=== PATIENT | male | born 1955 | race Caucasian/White ===

== ENCOUNTER → 2018-05-21 | Outpatient (CLI) | payer OTHER ==
--- NOTE | ~2018-05-21 | ONC ---
[place] [address] RADIATION ONCOLOGY NOTE Name: SHAAN COTA Room: [facility]#: [id number] Admission: 05/21/18 Attend Phys: Brad Perales MD Discharge: Date of : 59 Report #: [id number] THIS REPORT FOR: //name// CC: Brad Miranda DATE OF SERVICE: 05/21/2018 REFERRING PHYSICIANS: Serjio Miranda MD; Saroj Gama MD; Sandeep Maier MD; Brielle Goff MD; Tee Connolly M.D. [facility] phone is [phone]. 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 The patient's radiation treatments were completed on 05/03/2015. INTERVAL NOTE: The patient tends to eat moist foods. He stopped eating dry foods like dry breads because of his xerostomia. The option of pilocarpine was discussed with the patient, but he was not interested in starting pilocarpine at this time. Instead, he likes to take Mentos that helped some. He also uses 1.1% fluoride gel that his dentist prescribes for him. He uses that regularly and sees his dentist regularly. MEDICATIONS: Hyzaar and 50 mcg of levothyroxine. 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 He is . Cigarettes, he does not smoke. REVIEW OF SYSTEMS: RESPIRATORY: The patient's breathing was baseline. He was not short of breath. EXTREMITIES: He has good range of motion of his extremities. PHYSICAL EXAMINATION: VITAL SIGNS: The patient weighed 194.8 pounds on 05/21/2018, 189.4 pounds 05/20/2017. On 05/21/2018, blood pressure is 134/76, pulse 64, respirations 20, oxygen saturation 96%. LYMPH NODES: He had no palpable cervical or supraclavicular lymphadenopathy. HEAD, EYES, EARS, NOSE AND THROAT: Mouth had no suspicious visible lesions or suspicious palpable lesions. On nasopharyngolaryngoscopy, after application of a small amount of 2% viscous lidocaine orally and 2% viscous lidocaine via left nostril, using a cotton swab, there were no visible lesions in the nasopharynx. There were no visible lesions in the posterior oropharynx. Base of tongue had no visible lesions. The true vocal cords were normally mobile bilaterally. HEART: Had a regular rate and rhythm without murmur. LUNGS: [place] [address] RADIATION ONCOLOGY NOTE Name: SHAAN COTA Room: [facility]#: [id number] Admission: 05/21/18 Attend Phys: Brad Perales MD Discharge: Date of : 59 Report #: [id number] LABORATORY DATA: From 05/19/2018, BUN was 33, creatinine was 1.93. His creatinine was 1.87 on 04/01/2018 and it was 2.25 on 10/28/2017. TSH was elevated at 6.12 with him taking 50 mcg of levothyroxine per day. RADIOLOGIC DATA: He had a neck and chest CT on 10/28/2017, which showed post-therapeutic changes in the head and neck area and no thoracic lymphadenopathy or pulmonary metastatic disease. ASSESSMENT AND PLAN: 1. History of base of tongue cancer. There is no evidence of head and neck cancer at this time. The patient is scheduled for lab work and a neck and chest CT with his medical oncologist, Dr. Goff on 10/28/2018. He is scheduled to follow up with Dr. Goff on 10/29/2018. I gave the patient a requisition for basic metabolic panel 04/2019 and I asked the patient to follow up with me afterwards. 2. Hypothyroidism. The patient's TSH was elevated with him taking 50 mcg of levothyroxine per day. So he was given a new prescription to 4 75 mcg of levothyroxine per day. A TSH was ordered in 04/2019 and he was asked to schedule a followup appointment to see me afterwards. 3. Renal insufficiency. The patient follows up with his glass fitter, Dr. Gama on a regular basis to manage this issue. 4. Elevated prostate specific antigen, appears to be due to benign prostatic hypertrophy. It is indicated, he had a biopsy earlier in 2016, which was benign. He continues to follow up with his urologist, Dr. Connolly with regards to this issue. 5. Hypertension. The patient takes Hyzaar and that is managed by his referring physicians. 6. Dental care. The patient sees his dentist regularly and uses what appears to be a high fluoride toothpaste for dental care. Thank you for allowing me to participate in the care of this patient. By: 1149 [id number] Perales MD /radha
--- NOTE | ~2018-05-21 | ONC ---
[place] [address] RADIATION ONCOLOGY NOTE Name: SHAAN COTA Room: [facility]#: [id number] Admission: 05/21/18 Attend Phys: Brad Perales MD Discharge: Date of : 59 Report #: [id number] THIS REPORT FOR: //name// CC: Brad Miranda DATE OF SERVICE: 05/21/2018 REFERRING PHYSICIANS: Include Serjio Miranda MD; Saroj Gama MD; Sandeep Maier MD; Brielle Goff MD; Tee Connolly MD. [facility] phone is [phone]. 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 The patient received chemoradiotherapy. The radiation treatments were completed on 05/03/2015. PROCEDURE: Nasopharyngolaryngoscopy. FINDINGS: On nasopharyngolaryngoscopy after administration of a small amount of 2% viscous lidocaine orally and 2% viscous lidocaine to left nostril with a cotton swab, there were no visible lesions in the nasopharynx. There were no visible lesions in the oropharynx. There were no visible lesions involving the base of tongue. The true vocal cords are normally mobile bilaterally without any visible lesions. There was no evidence of head and neck cancer. Thank you for allowing me to participate in the care of this patient. By: 1143 [id number] Perales MD /radha
== END ==
LOC: M.RTH 02:22
DX: Z08 Encounter for follow-up examination after completed treatment for malignant neoplasm (principal); E03.9 Hypothyroidism, unspecified; I10 Essential (primary) hypertension; R97.20 Elevated prostate specific antigen [PSA]; Z85.810 Personal history of malignant neoplasm of tongue; Z79.899 Other long term (current) drug therapy

== ENCOUNTER → 2018-08-04 | Outpatient (CLI) | payer OTHER ==
--- NOTE | 2018-08-04 14:28 | 2DMMODE ---
[place] [address] 2 D/M-MODE ECHOCARDIOGRAM Name: SHAAN COTA Room: [facility]#: [id number] Admission: 08/04/18 Attend Phys: Serjio Sifuentes, Discharge: Date of : 59 Date of Service: 08/04/18 1428 Report #: [id number] THIS REPORT FOR: //name// APPROVED REPORT Study performed: 08/04/2018 10:54:43 EXAM: Comprehensive 2D, Doppler, and color-flow Echocardiogram Patient Location: Out-Patient BSA: 1.98 HR: 62 bpm BP: 142/80 mmHg Other Information Study Quality: Good Indications Mitral Valve Prolapse 2D Dimensions IVSd: 11.76 (7-11mm) LVOT Diam: 20.78 (18-24mm) LVDd: 50.43 mm PWd: 11.90 (7-11mm) Ascending Ao: 30.40 (22-36mm) LVDs: 28.24 (25-40mm) Aortic Root: 30.20 mm Volumes Left Atrial Volume (Systole) LA ESV Index: 37.20 mL/m2 Aortic Valve AoV Peak Emory.: 1.25 m/s AO Peak Gr.: 6.22 mmHg LVOT Max P.38 mmHg AO Mean Gr.: 3.43 mmHg LVOT Mean P.31 mmHg LVOT Max V: 1.26 m/s AO V2 VTI: 18.49 cm LVOT Mean V: 0.85 m/s CHIDI (VTI): 3.30 cm2 LVOT V1 VTI: 18.00 cm Mitral Valve MV Peak Gr.: 3.36 mmHg MV Mean Gr.: 1.43 mmHg E/A Ratio: 1.11 MV Decel. Time: 319.08 ms MV E Max Emory.: 0.76 m/s MV PHT: 92.53 [place] [address] 2 D/M-MODE ECHOCARDIOGRAM Name: SHAAN COTA Room: [facility]#: [id number] Admission: 08/04/18 Attend Phys: Serjio Sifuentes, Discharge: Date of : 59 Date of Service: 08/04/18 1428 Report #: [id number] MVA (PHT): 2.38 cm2 TDI E/Lateral E': 8.44 E/Medial E': 8.44 Medial E' Emory.: 0.09 m/s Lateral E' Emory.: 0.09 m/s Pulmonary Valve PV Peak Emory.: 0.97 m/s PV Peak Gr.: 3.73 mmHg Tricuspid Valve RAP Estimate: 5.00 mmHg TR Peak Gr.: 16.86 mmHg RVSP: 21.86 mmHg PA Pressure: 21.86 mmHg Left Ventricle The left ventricle is normal size. There is normal LV segmental wall motion. There is normal left ventricular wall thickness. Left ventricular systolic function is normal. The left ventricular ejection fraction is within the normal range. LVEF is 60-65%. The left ventricular diastolic function is normal. Right Ventricle The right ventricle is normal size. The right ventricular systolic function is normal. Atria Left atrium is moderately dilated. The right atrium size is normal. Aortic Valve The aortic valve is normal in structure. Mild aortic regurgitation. There is no aortic valvular stenosis. Mitral Valve Moderate mitral regurgitation. No evidence of mitral valve stenosis. There is moderate mitral valve prolapse. Tricuspid Valve The tricuspid valve is normal in structure. Mild tricuspid regurgitation. Pulmonic Valve The pulmonary valve is normal in structure. [place] [address] 2 D/M-MODE ECHOCARDIOGRAM Name: SHAAN COTA Room: [facility]#: [id number] Admission: 08/04/18 Attend Phys: Serjio Sifuentes, Discharge: Date of : 59 Date of Service: 08/04/18 1428 Report #: [id number] Great Vessels The aortic root is normal in size. IVC is normal in size and collapses >50% with inspiration. Pericardium There is no pericardial effusion. <Conclusion> LVEF is 60-65%. Mild aortic regurgitation. Moderate mitral regurgitation. There is moderate mitral valve prolapse. Left atrium is moderately dilated. <ELECTRONICALLY SIGNED> By: Jeff Rivera MD, [facility] 08/04/18 1428 1428 1428 Jeff Rivera MD, FAC /INF
--- NOTE | 2018-08-04 14:47 | EXE ---
[place] [address] STRESS ECHOCARDIOGRAM Name: SHAAN COTA Room: [facility]#: [id number] Admission: 08/04/18 Attend Phys: Serjio Sifuentes, Discharge: Date of : 59 Date of Service: 08/04/18 1447 Report #: [id number] THIS REPORT FOR: //name// APPROVED REPORT Study performed: 08/04/2018 11:36:42 Exam: Stress Echocardiogram Indication: Dyspnea Patient Location: Out-Patient Stress Nurse: Debbie Garcia RN Supervising Physician: Jeff Rivera MD Ht: 5 ft 8 in HR: 57 bpm BP: 150/79 mmHg Medical History Cardiac Risk Factors: HTN, FHX of CAD Procedure The patient underwent an Exercise Stress Test using the Abdifatah Protocol. Blood pressure, heart rate, and EKG were monitored. An Echocardiogram was performed by fiber optics technician in four stages in quad fashion. At peak stress, four selected images were obtained and placed side by side with resting images for comparison. Stress Test Details Stress Test: Exercise stress testing was performed using a Abdifatah protocol. HR Resting HR: 57 bpm Max Heart Rate (APMHR): 160 bpm Max HR Achieved: 158 bpm Target HR (85% APMHR): 136 bpm % of APMHR: 98 Recovery HR: 88 bpm HR response to stress: Normal HR response to stress BP Resting BP: 150/79 mmHg Max BP: 232/64 mmHg Recovery BP: 143/79 mmHg BP response to stress: Normal blood pressure response to stress. ECG Resting ECG: Sinus Rhythm Stress ECG: [place] [address] STRESS ECHOCARDIOGRAM Name: SHAAN COTA Room: [facility]#: [id number] Admission: 08/04/18 Attend Phys: Serjio Sifuentes, Discharge: Date of : 59 Date of Service: 08/04/18 1447 Report #: [id number] ST Change: Normal Maximum ST Deviation: 0 mm Arrhythmia: None Recovery ECG: Sinus Rhythm Recovery ST Change: Normal Recovery ST Deviation: 0 mm Recovery Arrhythmia: None Clinical Reason for Termination: Completed protocol Exercise duration: 10 min sec Highest Stage Achieved: Stage 4: 4.2 mph at 16% grade. Exercise capacity: 11.80 METs Pre-Stress Echo The resting Echocardiogram showed normal left ventricular contractility with an estimated Ejection Fraction of about 55-60%. Post-Stress Echo The stress Echocardiogram showed normal left ventricular contractility with an estimated Ejection Fraction of about 65-70%. Conclusion Clinical Response: Non-ischemic Exercise Capacity: Average Stress ECG Response: Non-ischemic Stress Echo Images: Non-ischemic low risk stress echo for future cardiac events Other Information Study Quality: Good <Conclusion> low risk stress echo for future cardiac events <ELECTRONICALLY SIGNED> By: Jeff Rivera MD, FACC 08/04/18 1447 1447 144 Jeff Rivera MD, FAC /INF
== END ==
LOC: M.CRD 07-21 16:26
DX: I08.3 Combined rheumatic disorders of mitral, aortic and tricuspid valves (principal)

== ENCOUNTER → 2018-08-04 | Outpatient (CLI) | payer OTHER | LOC: M.CT 09:30 | DX: Z13.6 Encounter for screening for cardiovascular disorders (principal) ==

== ENCOUNTER → 2019-06-05 | Outpatient (CLI) | payer OTHER ==
--- NOTE | ~2019-06-05 | ONC ---
[address] [address] RADIATION ONCOLOGY NOTE Name: SHAAN COTA Room: [facility]#: [id number] Admission: 06/05/19 Attend Phys: Brad Perales MD Discharge: Date of : 59 Report #: [id number] THIS REPORT FOR: //name// CC: Brad Arambula DATE OF SERVICE: 06/05/2019 REFERRING PHYSICIANS: Include Dr. Serjio Miranda; Dr. Saroj Gama; Dr. Sandeep Maier; Dr. Brielle Goff; Dr. Arambula. [facility] phone number is [phone]. PRIMARY SITE AND HISTOPATHOLOGY: The patient was treated for stage 4A T2 N2 M0 squamous cell cancer of the base of tongue with chemoradiotherapy. The patient's radiation treatments were completed on 05/03/2015. He was also recently diagnosed with prostate cancer on 05/14/2019 with a Shenandoah score of 3 + 4 equals 7 and PSA was 6.0 in 01/2017. The patient is scheduled for prostatectomy in 07/2019. INTERVAL NOTE: As noted, the patient had a prostate biopsy on 05/14/2019 and Shenandoah score was 3 + 4 equals 7 on two of the cores that were biopsied. Again, he is scheduled for prostatectomy in 07/2019. Dr. Muñoz performed the biopsy. Otherwise, with regards to his history of head and neck cancer, the patient is eating well. He was eating moist foods. In terms of the xerostomia, he likes to take mentos mints, which helps relieve some of his xerostomia symptoms and he also uses 1.1% fluoride gel that his dentist prescribes for him. MEDICATIONS: Include Hyzaar and 75 mcg of levothyroxine per day. 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 He is . Cigarettes, he does not smoke cigarettes. REVIEW OF SYSTEMS: RESPIRATORY: The patient's breathing was baseline. He was not short of breath. EXTREMITIES: He has good range of motion of his extremities. PHYSICAL EXAMINATION: VITAL SIGNS: The patient weighed 189 pounds on 06/05/2019, 194.8 pounds on 05/21/2018. On 06/05/2019, blood pressure is 125/71, pulse 60, respirations 18, oxygen saturation 97%. LYMPH NODES: He had no palpable cervical or supraclavicular lymphadenopathy. HEAD, EYES, EARS, NOSE, AND THROAT: Mouth had no suspicious visible lesions or suspicious palpable lesions. On nasopharyngolaryngoscopy, after application of a small amount of 2% viscous lidocaine orally and 2% viscous lidocaine via left nostril using cotton swab, there were no visible lesions in the nasopharynx and no visible lesions in the posterior oropharynx. The [place] [address] RADIATION ONCOLOGY NOTE Name: SHAAN COTA [place] [id number] Admission: 06/05/19 Attend Phys: Brad Perales MD Discharge: Date of : 59 Report #: [id number] visible lesions. True vocal cords are normally mobile bilaterally. HEART: Had a regular rate and rhythm without murmur. LUNGS: Clear to auscultation. LABORATORY DATA: PSA on 03/04/2019 was 6.6. On 03/20/2019, his white blood count was 7.7; hemoglobin 14.1; platelets 197,000. BUN 31, creatinine 1.82. TSH was 3.42, which was within normal limits on his present dose of 75 mcg of levothyroxine per day. The patient also had a neck and chest CT on 10/28/2018, which showed no evidence of recurrent disease in the neck or chest. ASSESSMENT AND PLAN: 1. History of base of tongue cancer. There is no evidence of base of tongue cancer at this time. The patient's medical oncologist, Dr. Goff, has ordered a neck and chest CT on 10/27/2019 and she will follow up with the patient on 10/29/2019. I ordered a basic metabolic panel in about 1 year and asked the patient to follow up with me afterwards. 2. Hypothyroidism. The patient's TSH was within normal limits with him taking 75 mcg of levothyroxine per day, so he was given a refill for 75 mcg of levothyroxine. TSH was ordered in about 1 year and the patient was asked to schedule a followup appointment to see me afterwards. 3. Renal insufficiency. The patient follows up with his it support analyst, Dr. Gama, on a regular basis to manage this issue. 4. Prostate cancer -- the patient said he is scheduled for a prostatectomy in 07/2019 to manage this issue. 5. Hypertension. The patient takes Hyzaar and that is managed by his referring physicians. 6. Dental care. The patient sees a dentist regularly and uses high fluoride toothpaste provided to him by his dentist. 7. Possible upper respiratory infection. The patient has mildly productive cough. He was given a week's course of Levaquin. Thank you for allowing me to participate in the care of this patient. By: 1443 [id number] Perales MD /radha
--- NOTE | ~2019-06-05 | ONC ---
[place] [address] RADIATION ONCOLOGY NOTE Name: SHAAN COTA Room: [facility]#: [id number] Admission: 06/05/19 Attend Phys: Brad Perales MD Discharge: Date of : 59 Report #: [id number] THIS REPORT FOR: //name// CC: Brad Arambula DATE OF SERVICE: 06/05/2019 REFERRING PHYSICIANS: Brielle Goff MD, Flaco Peterson MD, Dr. Arambula and Serjio Sifuentes MD [facility] phone is [phone]. PRIMARY SITE AND HISTOPATHOLOGY: The patient has stage 4A T2 N2 M0 squamous cell carcinoma at the base of tongue. The patient received chemoradiotherapy. The radiation treatments were completed on 05/03/2015. PROCEDURE: Nasopharyngolaryngoscopy. FINDINGS: On nasopharyngolaryngoscopy, after administration of a small amount of 2% viscous lidocaine orally and 2% viscous lidocaine to left nostril with a cotton swab, there were no visible lesions in the nasopharynx, no visible lesions in the oropharynx and no visible lesions involving the base of tongue. The true vocal cords were normally mobile bilaterally without any visible lesions. There is no evidence of head and neck cancer. Thank you for allowing me to participate in the care of this patient. By: 1436 [id number] raymundo Velásquez
== END ==
LOC: M.RTH 05:15
DX: C02.9 Malignant neoplasm of tongue, unspecified (principal); E03.9 Hypothyroidism, unspecified; N28.9 Disorder of kidney and ureter, unspecified; I10 Essential (primary) hypertension

== ENCOUNTER → 2019-07-21 | Outpatient (CLI) | payer OTHER ==
--- NOTE | 2019-07-21 15:25 | 2DMMODE ---
[place] [address] 2 D/M-MODE ECHOCARDIOGRAM Name: SHAAN COTA Room: [facility]#: [id number] Admission: 07/21/19 Attend Phys: Serjio Sifuentes, Discharge: Date of : 59 Date of Service: 07/21/19 1524 Report #: [id number] THIS REPORT FOR: //name// APPROVED REPORT Study performed: 07/21/2019 10:01:11 EXAM: Comprehensive 2D, Doppler, and color-flow Echocardiogram Patient Location: Out-Patient BSA: 1.99 HR: 69 bpm BP: 140/80 mmHg Other Information Study Quality: Good Indications Mitral Valve Prolapse 2D Dimensions IVSd: 11.34 (7-11mm) LVOT Diam: 20.23 (18-24mm) LVDd: 45.10 mm PWd: 11.90 (7-11mm) Ascending Ao: 29.75 (22-36mm) LVDs: 25.24 (25-40mm) Aortic Root: 24.16 mm Volumes Left Atrial Volume (Systole) LA ESV Index: 26.50 mL/m2 Aortic Valve AoV Peak Emory.: 1.20 m/s AO Peak Gr.: 5.80 mmHg LVOT Max P.45 mmHg AO Mean Gr.: 3.27 mmHg LVOT Mean P.23 mmHg LVOT Max V: 1.17 m/s AO V2 VTI: 17.97 cm LVOT Mean V: 0.67 m/s CHIDI (VTI): 3.58 cm2 LVOT V1 VTI: 20.02 cm Mitral Valve E/A Ratio: 0.74 MV Decel. Time: 169.90 ms MV E Max Emory.: 0.56 m/s MV PHT: 49.27 ms MVA (PHT): 4.47 [place] [address] 2 D/M-MODE ECHOCARDIOGRAM Name: SHAAN COTA Room: [facility]#: [id number] Admission: 07/21/19 Attend Phys: Serjio Sifuentes, Discharge: Date of : 59 Date of Service: 07/21/19 1524 Report #: [id number] TDI E/Lateral E': 8.00 E/Medial E': 8.00 Medial E' Emory.: 0.07 m/s Lateral E' Emory.: 0.07 m/s Pulmonary Valve PV Peak Emory.: 1.18 m/s PV Peak Gr.: 5.59 mmHg Tricuspid Valve RAP Estimate: 5.00 mmHg TR Peak Gr.: 22.82 mmHg RVSP: 27.82 mmHg PA Pressure: 27.82 mmHg Left Ventricle The left ventricle is normal size. There is normal LV segmental wall motion. There is normal left ventricular wall thickness. Left ventricular systolic function is normal. LVEF is 60-65%. This study is not technically sufficient to allow evaluation of the LV diastolic function. Right Ventricle The right ventricle is normal size. The right ventricular systolic function is normal. Atria The left atrium size is normal. The right atrium size is normal. Aortic Valve The aortic valve is normal in structure. Mild aortic regurgitation. There is no aortic valvular stenosis. Mitral Valve Mitral valve leaflets are mildly thickened. Moderate anteriorly directed mitral valve regurgitation. No evidence of mitral valve stenosis. Moderate prolapse of the posterior mitral valve leaflet. Tricuspid Valve The tricuspid valve is normal in structure. Mild tricuspid regurgitation. Pulmonic Valve The pulmonary valve is normal in structure. There is no pulmon[place] [address] 2 D/M-MODE ECHOCARDIOGRAM Name: SHAAN COTA [place] Room: [facility]#: [id number] Admission: 07/21/19 Attend Phys: Serjio Sifuentes, Discharge: Date of : 59 Date of Service: 07/21/19 1524 Report #: [id number] Great Vessels The aortic root is normal in size. IVC is normal in size and collapses >50% with inspiration. Pericardium There is no pericardial effusion. <Conclusion> The left ventricle is normal size. There is normal left ventricular wall thickness. Left ventricular systolic function is normal. LVEF is 60-65%. This study is not technically sufficient to allow evaluation of the LV diastolic function. Mitral valve leaflets are mildly thickened. Moderate anteriorly directed mitral valve regurgitation. Moderate prolapse of the posterior mitral valve leaflet. Mild tricuspid regurgitation. IVC is normal in size and collapses >50% with inspiration. <ELECTRONICALLY SIGNED> By: Serjio Sifuentes MD, FACC 07/21/19 1524 1524 1524 Serjio Sifuentes MD, FACC /INF
== END ==
LOC: M.CRD 09:56
DX: I08.0 Rheumatic disorders of both mitral and aortic valves (principal)

== ENCOUNTER → 2021-04-03 | Outpatient (CLI) | payer OTHER ==
--- NOTE | 2021-04-03 11:40 | 2DMMODE ---
[place] [address] 2 D/M-MODE ECHOCARDIOGRAM Name: SHAAN COTA Room: [facility]#: [id number] Admission: 04/03/21 Attend Phys: Serjio Sifuentes, Discharge: Date of : 59 Date of Service: 04/03/21 1140 Report #: [id number] THIS REPORT FOR: cc: Dante Hopkins MD, Matthew W. MD Blick, David R. MD [facility] ~ APPROVED REPORT Study performed: 04/03/2021 10:19:15 EXAM: Comprehensive 2D, Doppler, and color-flow Echocardiogram Patient Location: Out-Patient BSA: 1.94 HR: 64 bpm BP: 150/90 mmHg Other Information Study Quality: Good Indications Mitral Valve Disease 2D Dimensions IVSd: 11.00 (7-11mm) LVOT Diam: 20.85 (18-24mm) LVDd: 54.20 mm PWd: 8.05 (7-11mm) Ascending Ao: 29.25 (22-36mm) LVDs: 30.45 (25-40mm) Aortic Root: 31.53 mm Volumes Left Atrial Volume (Systole) LA ESV Index: 24.60 mL/m2 Aortic Valve AoV Peak [facility].: 1.27 m/s AO Peak Gr.: 6.46 mmHg LVOT Max P.55 mmHg AO Mean Gr.: 3.77 mmHg LVOT Mean P.28 mmHg LVOT Max V: 1.18 m/s AO V2 VTI: 20.56 cm LVOT Mean V: 0.67 m/s CHIDI (VTI): 3.55 cm2 LVOT V1 VTI: 21.42 cm Mitral Valve E/A Ratio: 1.01 [place] [address] 2 D/M-MODE ECHOCARDIOGRAM Name: SHAAN COTA BOWDOIN [facility] [id number] Admission: 04/03/21 Attend Phys: Serjio Sifuentes, Discharge: Date of : 59 Date of Service: 04/03/21 1140 Report #: [id number] MV Decel. Time: 225.84 ms MV E Max [facility].: 0.68 m/s MV PHT: 65.49 ms MVA (PHT): 3.36 cm2 TDI E/Lateral E': 7.56 E/Medial E': 8.50 Medial E' [facility].: 0.08 m/s Lateral E' [facility].: 0.09 m/s Pulmonary Valve PV Peak [facility].: 0.85 m/s PV Peak Gr.: 2.90 mmHg Tricuspid Valve RAP Estimate: 5.00 mmHg TR Peak Gr.: 21.23 mmHg RVSP: 26.23 mmHg PA Pressure: 26.23 mmHg Left Ventricle The left ventricle is normal size. There is normal LV segmental wall motion. There is normal left ventricular wall thickness. Left ventricular systolic function is normal. The left ventricular ejection fraction is within the normal range. LVEF is 55-60%. The left ventricular diastolic function is normal. Right Ventricle The right ventricle is normal size. The right ventricular systolic function is normal. Atria The left atrium size is normal. The right atrium size is normal. Aortic Valve The aortic valve is normal in structure. Mild aortic regurgitation. There is no aortic valvular stenosis. Mitral Valve Mitral valve leaflets are mildly thickened. Moderate mitral regurgitation. No evidence of mitral valve stenosis. Moderate prolapse of the posterior mitral valve leaflet. Tricuspid Valve The tricuspid valve is normal in structure. Mild tricuspid regurgitation. estimated pa pressure 30 [place] [address] 2 D/M-MODE ECHOCARDIOGRAM Name: SHAAN COTA Room: [facility]#: [id number] Admission: 04/03/21 Attend Phys: Serjio Sifuentes, Discharge: Date of : 59 Date of Service: 04/03/21 1140 Report #: [id number] Pulmonic Valve The pulmonary valve is normal in structure. Mild pulmonic regurgitation. Great Vessels The aortic root is normal in size. IVC is normal in size and collapses >50% with inspiration. Pericardium There is no pericardial effusion. <Conclusion> LVEF is 55-60%. Moderate mitral regurgitation. Moderate prolapse of the posterior mitral valve leaflet. Mild tricuspid regurgitation. estimated pa pressure 30 mm Hg <ELECTRONICALLY SIGNED> By: Jeff Rivera MD, FACC 04/03/21 1140 1140 1140 Jeff Rivera MD, FACC /INF
== END ==
LOC: M.CRD 09:50
PROVIDERS: ATTEND Internal Medicine Cardiovascular Disease
DX: I08.8 Other rheumatic multiple valve diseases (principal)